=== PATIENT | female | born 2005 | race Caucasian/White ===

== ENCOUNTER 2023-02-05 11:00 | Day surgery (SDC) | payer BC ==
[~2023-02-05 11:00] MED LIST: SODIUM CHLORIDE 0.9% 1,000 ML IV SCH
[2023-02-05 11:21] VITALS: TEMP 98.4
[2023-02-05 14:11] VITALS: BP 129/71; PULSE 67; RESP 16
--- NOTE | 2023-02-05 20:16 | P.EPPROC ---
- EP Procedure Note Electrophysiology Procedure Note: Indication Recurrent syncope Twelve-lead EKG shows sinus rhythm normal IA narrow QRS no delta waves no epsilon waves normal QT interval no early repolarization Rightward axis Tilt table test protocol Baseline blood pressure 130/88 mmHg pulse rate 74 beats a minute Immediate increase in heart rate to 108 beats a minute and she complained of dizziness at that time Thereafter the heart rate settled down. No change in blood pressure After 26 minutes heart rate increased 106 beats a minute followed by a drop in blood pressure. At that time she complained of dizziness, trouble hearing, tunnel vision and became presyncopal When she was laid supine her blood pressure normalized Impression Normal 12-lead EKG with a rightward axis Neurocardiogenic response to upright tilting
== END 2023-02-05 14:00 | disposition home or self-care (01) ==
LOC: CATHEP 11:00
PROVIDERS: ATTEND Internal Medicine Clinical Cardiac Electrophysiology
DX: R55 Syncope and collapse (principal)
CPT/HCPCS: 81025; 93660

== ENCOUNTER 2025-04-09 20:53 | Observation (INO) | payer BC, OTHER ==
[2025-04-09] MEDS: fentaNYL (PF) 50 MCG/ML 2 ML AMP IVP STA ×3 (20:58→23:05)
[2025-04-09 21:03] LABS: Glucose,Whole Blood 148 mg/dL (70-110)
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
[2025-04-09] MEDS: ONDANSETRON 4 MG/2 ML VIAL IVP STA (21:12)
[2025-04-09] MEDS: HYDROmorphone 1 MG/ML 1 ML SYRINGE IVP STA (21:18)
[2025-04-09 21:19] LABS: Basophils # (A) 0.05 10*3/uL (0.00-0.10); Basophils % (A) 0.3 %; Eosinophils # (A) 0.39 10*3/uL (0.04-0.35); Eosinophils % (A) 2.3 %; HCT 35.8 % (37.2-46.3); HGB 12.2 g/dL (12.0-15.0); Lymphocytes # (A) 2.17 10*3/uL (0.90-5.00); Lymphocytes % (A) 13.1 %; MCH 29.9 pg (27.0-32.0); MCHC 34.1 g/dL (32.0-37.0); MCV 87.7 fL (80.0-97.0); Mean Platelet Volume 10.9 fL (9.5-12.2); Monocytes # (A) 0.73 10*3/uL (0.20-1.00); Monocytes % (A) 4.4 %; Neutrophils # (A) 13.19 10*3/uL (1.80-7.70); Neutrophils % (A) 79.4 %; Platelet Count 308 10*3/uL (140-440); RBC 4.08 10*6/uL (4.10-5.20); RDW 11.8 % (11.5-14.5); WBC 16.61 10*3/uL (4.50-10.00)
[2025-04-09 21:30] LABS: Partial Thromboplastin Time 22.6 sec (22.0-30.0); Prothrombin Time 11.1 sec (10.0-12.5)
[2025-04-09 21:31] LABS: ALT 20 U/L (4-34); AST 24 U/L (14-36); African American GFR (CKD) >90 (>60 ml/min/1.73 sqM); Albumin 3.7 g/dL (3.5-5.0); Alcohol <10 mg/dL; Alkaline Phosphatase 61 U/L (38-126); Anion Gap 9 mmol/L; Blood Urea Nitrogen 17 mg/dL (7-17); Calcium 8.6 mg/dL (8.4-10.2); Carbon Dioxide 20 mmol/L (22-30); Chloride 108 mmol/L (98-107); Glucose 146 mg/dL (74-99); Non-African American GFR(CKD) >90 (>60 ml/min/1.73 sqM); Potassium 3.8 mmol/L (3.5-5.1); Sodium 137 mmol/L (137-145); Total Bilirubin 0.3 mg/dL (0.2-1.3); Total Protein 6.3 g/dL (6.3-8.2)
[2025-04-09] MEDS: DIPH,PERTUS(ACELL)TETVAC-LF 0.5 ML VIAL IM ONE (21:46)
[2025-04-09] MEDS: SODIUM CHLORIDE 0.9% 1,000 ML IV STA (21:53)
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
[2025-04-09] MEDS: KETOROLAC 15 MG/ML 1 ML VIAL IVP STA (23:02)
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
[2025-04-09 23:21] LABS: Amphetamine Screen,Urine Not Detected (NotDetected); Barbiturate Screen,Urine Not Detected (NotDetected); Benzodiazepines Screen,Urine Not Detected (NotDetected); Cocaine Screen,Urine Not Detected (NotDetected); Methadone Screen, Urine Not Detected (NotDetected); Opiate Screen,Urine Detected (NotDetected); Oxycodone Screen, Urine Not Detected (NotDetected); Phencyclidine Screen,Urine Not Detected (NotDetected); Tricyclic Antidepressant,Urine Not Detected (NotDetected); Urn Cannabinoid Scrn Not Detected (NotDetected)
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
[2025-04-10] MEDS: SODIUM CHLORIDE 0.9% 1,000 ML IV ONE (03:19)
[2025-04-10] MEDS: ACET/COD 300 MG/30 MG STARTER PACK TAB BTL PO STA (03:41)
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
[2025-04-10] MEDS ORDERED: NALOXONE 0.4 MG/ML 1 ML VIAL IV PRN (05:16)
[2025-04-10] MEDS ORDERED: ONDANSETRON 4 MG/2 ML VIAL IVP PRN (05:16)
[2025-04-10] MEDS: KETOROLAC 15 MG/ML 1 ML VIAL IVP PRN (08:02)
[2025-04-10] MEDS ORDERED: HYDROmorphone 0.5 MG/0.5 ML SYRINGE IVP PRN (08:13)
[2025-04-10] MEDS ORDERED: HYDROcodone/APAP 5-325MG 1 EACH TAB PO PRN (08:14)
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
[2025-04-10] MEDS: ENOXAPARIN 40 MG/0.4 ML SYRINGE SQ SCH (09:28)
[2025-04-10] MEDS: SODIUM CHLORIDE 0.9% 1,000 ML IV STA (09:33)
[2025-04-10] MEDS: HYDROcodone/APAP 5-325MG 1 EACH TAB PO PRN (14:11)
[2025-04-11 09:29] LABS: Basophils # (A) 0.05 X 10*3/uL (0.00-0.10); Basophils % (A) 0.6 %; Eosinophils # (A) 0.61 X 10*3/uL (0.04-0.35); Eosinophils % (A) 7.2 %; HCT 31.9 % (37.2-46.3); HGB 10.4 g/dL (12.0-15.0); Lymphocytes # (A) 1.43 X 10*3/uL (0.90-5.00); Lymphocytes % (A) 16.8 %; MCH 29.4 pg (27.0-32.0); MCHC 32.6 g/dL (32.0-37.0); MCV 90.1 FL (80.0-97.0); Mean Platelet Volume 11.2 FL (9.5-12.2); Monocytes # (A) 0.62 X 10*3/uL (0.20-1.00); Monocytes % (A) 7.3 %; NRBC Per 100 WBC 0 X 10*3/uL (0.00-0.01); Neutrophils # (A) 5.77 X 10*3/uL (1.80-7.70); Neutrophils % (A) 67.7 %; Platelet Count 215 X 10*3/uL (140-440); RBC 3.54 X 10*6/uL (4.10-5.20); RDW 12.4 % (11.5-14.5); WBC 8.51 X 10*3/uL (4.50-10.00)
[2025-04-11 09:39] LABS: ALT 20 U/L (8-44); AST 17 U/L (13-35); Albumin 3.1 g/dL (3.8-4.9); Albumin/Globulin Ratio 1.48 Ratio (1.60-3.17); Alkaline Phosphatase 37 U/L (41-126); Blood Urea Nitrogen 10.2 mg/dL (9.0-27.0); Calcium 8.1 mg/dL (8.7-10.3); Carbon Dioxide 21.4 mmol/L (21.6-31.8); Chloride 108 mmol/L (96-109); Globulin 2.1 g/dL (1.6-3.3); Glucose 87 mg/dL (70-110); Potassium 4.1 mmol/L (3.5-5.5); Sodium 137 mmol/L (135-145); Total Bilirubin 0.6 mg/dL (0.3-1.2); Total Protein 5.2 g/dL (6.2-8.2)
--- NOTE | 2025-04-11 11:07 | P.PN ---
Subjective Patient was seen at bedside this morning with her boyfriend. She is doing better but still continues to have pain in both of her ankles. She has not yet been up with physical therapy at the time of my evaluation. Objective - Vital Signs Vital signs: Vital Signs Temp 98.5 F 04/11/25 06:49 Pulse 96 04/11/25 06:49 Resp 16 04/11/25 06:49 BP 93/58 04/11/25 06:49 Pulse Ox 98 04/11/25 06:49 FiO2 Intake & Output 04/10/25 04/11/25 04/11/25 18:59 06:59 18:59 Intake Total 1740 240 Balance 1740 240 Weight 58.967 kg Intake: Oral 1740 240 Other: Voiding Method Bedpan Bedpan Bedpan # Voids 5 1 # Bowel Movements 4 - Exam Resting comfortably in her bed. She is alert and able to answer questions. The splint is on the left ankle but the right ankle is without any assistive device or splint. Both boots are in her room. - Labs CBC & Chem 7: 04/11/25 06:23 04/11/25 06:23 Labs: Abnormal Lab Results - Last 24 Hours (Table) 04/11/25 04/11/25 Range/Units 06:23 06:23 RBC 3.54 L (4.10-5.20) X 10*6/uL Hgb 10.4 L (12.0-15.0) g/dL Hct 31.9 L (37.2-46.3) % Eosinophils # 0.61 H (0.04-0.35) X 10*3/uL Carbon Dioxide 21.4 L (21.6-31.8) mmol/L Calcium 8.1 L (8.7-10.3) mg/dL Alkaline Phosphatase 37 L (41-126) U/L Total Protein 5.2 L (6.2-8.2) g/dL Albumin 3.1 L (3.8-4.9) g/dL Albumin/Globulin Ratio 1.48 L (1.60-3.17) Ratio Assessment and Plan Plan: The patient had both of her cam boots and wheelchair delivered yesterday. We are waiting for evaluation by physical therapy. The patient would like to go home with her boyfriend and mom if possible. If she is cleared for discharge and does well we will place an order later today. We briefly discussed the possibility of requiring skilled rehab given her bilateral injuries.
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
[2025-04-13 07:32] VITALS: BP 89/61; PULSE 96; RESP 15; TEMP 97.7
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
== END 2025-04-13 14:14 | disposition home or self-care (01) ==
LOC: EC 20:53 → 5NMEDONC 04-10 05:16 → 4SSUR 04-12 16:45 → UNDODISOB 04-13 14:04
PROVIDERS: ADMIT Orthopaedic Surgery; ATTEND Orthopaedic Surgery
DX: S92.141A Displaced dome fracture of right talus, initial encounter for closed fracture (principal); S92.214A Nondisplaced fracture of cuboid bone of right foot, initial encounter for closed fracture; S82.52XA Displaced fracture of medial malleolus of left tibia, initial encounter for closed fracture; V28.49XA Other motorcycle driver injured in noncollision transport accident in traffic accident, initial encounter; Z23 Encounter for immunization; Z79.3 Long term (current) use of hormonal contraceptives
CPT/HCPCS: 96376 ×3; 96361 ×2; 96372 ×4; 96374 ×2; 96375; 99291; 36415; 27825; 93005; 97530 ×2; 97162; 86900; 86901; 80053 ×2; 83605; 84484; 85025 ×2; 85610; 85730; 86850; 81025; 80306; 80320; 73610; 72170; 73590; 71045; 72125; 70450 ×2; 71260; 74177; 73700; 90715; G0378 ×4; L0120; G0390; J2405; J1650 ×4; J3010; J1171; J1885 ×4; Q9967; 90471